=== PATIENT | female | born 1930 | race Caucasian/White ===

== ENCOUNTER 2016-12-13 16:24 | Inpatient (IN) | payer MEDICARE, MEDICAID ==
[2016-12-13 17:00] LABS: % BASOPHILS 0.3 % (0.0-2.0); % EOSINOPHILS 2.2 % (0.0-5.0); % LYMPHOCYTES 28.3 % (20.0-50.0); % MONOCYTES 8.1 % (2.0-10.0); % NEUTROPHILS 61.1 % (40.0-80.0); HEMATOCRIT 42.1 % (35.0-45.0); HEMOGLOBIN 13.7 gm/dL (11.7-16.1); MEAN CELL VOLUME 91.6 fl (81-100); MEAN CORPUSCULAR HEMOGLOBIN 29.8 pg (27.0-31.0); MEAN CORPUSCULAR HGB CONC 32.5 pg (28.0-36.0); MEAN PLATELET VOLUME 8.7 fl; PLATELET COUNT 222 Th/cmm (150-400); RED CELL DISTRIBUTION WIDTH 12.6 % (11.5-20.0); WHITE BLOOD COUNT 6.4 Th/cmm (4.8-10.8)
[2016-12-13 17:18] LABS: CHOLESTEROL 243 mg/dL (<200); TRIGLYCERIDES 316 mg/dL (<150)
[2016-12-13 17:20] LABS: ALB/GLOB RATIO 1.4 (1.0-1.8); ALKALINE PHOSPHATASE 83 U/L (34-104); BILIRUBIN,TOTAL 0.3 mg/dL (0.3-1.0); BUN - UREA NITROGEN 29 mg/dL (7-25); BUN/CREATININE RATIO 41.4; CALCIUM SERUM 9.2 mg/dL (8.6-10.3); CARBON DIOXIDE 27.9 mEq/L (21.0-31.0); CHLORIDE 102 mEq/L (98-107); CREATININE - SERUM 0.7 mg/dL (0.6-1.2); GLUCOSE 159 mg/dL (70-105); POTASSIUM SERUM 3.9 mEq/L (3.5-5.1); SGOT 15 U/L (13-39); SGPT/ALT 16 U/L (7-52); SODIUM SERUM 135 mEq/L (136-145)
[2016-12-13 17:37] LABS: INR 0.9 (0.5-1.4); PROTHROMBIN TIME (TEST) 9.4 SECONDS (9.5-11.5)
--- NOTE | 2016-12-13 17:46 | ED Physician Chart ---
Chief Complaint/HPI - Patient Information Date Seen:: 12/13/16 Time Seen:: 16:40 Chief Complaint:: RIGHT HAND INFECTION History of Present Illness:: THIS IS AN 86 YR OLD FEMALE SENT TO ER FOR AN EVALUATION OF A LESION ON THE RIGHT HAND AND SHE HAS A SIGNIFICANT PSYCH HISTORY. SHE IS UNABLE TO STATE HOW LONG THE HAND LESION HAS BEEN THERE. SHE IS UNABLE TO THINK WELL AND THE HISTORY AND REVIEW OF SYSTEMS ARE NOT RELIABLE. Allergies:: Allergies Allergy/AdvReac Type Severity Reaction Status Date / Time No Known Allergies Allergy Verified 12/13/16 16:35 Vitals:: Vital Signs - 8 hr 12/13/16 16:35 Temp 97.9 F HR 69 RR 19 BP 186/48 O2 Sat % 100 Historian:: Patient, Medical Records Review:: Nurse's Note Reviewed Review of Systems - Review of Systems General/Constitutional: No fever, No chills, No weight loss, No weakness, No diaphoresis, No edema, No loss of appetite Skin: No skin lesions, No rash, No bruising Head: No headache, No light-headedness Eyes: No loss of vision, No pain, No diplopia ENT: No earache, No nasal drainage, No sore throat, No tinnitus Neck: No neck pain, No swelling, No thyromegaly, No stiffness, No mass noted, Other (NOT ABLE TO GIVE) Cardio Vascular: No chest pain, No palpitations, No PND, No orthopnea, No edema Pulmonary: No SOB, No cough, No sputum, No wheezing GI: No nausea, No vomiting, No diarrhea, No pain, No melena, No hematochezia, No constipation, No hematemesis G/U: No dysuria, No frequency, No hematuria Musculoskeletal: No bone or joint pain, No back pain, No muscle pain Endocrine: No polyuria, No polydipsia Psychiatric: No prior psych history, No depression, No anxiety, No suicidal ideation Hematopoietic: No bruising, No lymphadenopathy Allergic/Immuno: No urticaria, No angioedema Neurological: No syncope, No focal symptoms, No weakness, No paresthesia, No headache, No seizure, No dizziness, No confusion, No vertigo Past Medical History - Past Medical History Obtainable: Yes Past Medical History: Dyslipidemia, Dementia Family History: None Social History: Non Smoker, No Alcohol, No Drug Use, Care Facility Surgical History: None Psychiatricy History: Depression, Schizophrenia Medication: Reviewed Family Medical History - Family Member Mother History Unknown: Yes Physical Exam - Physical Examination General/Constitutional: Awake, Well-developed, well-nourished, Alert, No distress, GCS 15, Non-toxic appearing, Ambulatory Head: Atraumatic Eyes: Lids, conjuctiva normal, PERRL, EOMI Skin: Nl inspection, No rash, No skin lesions, No ecchymosis, Well hydrated, No lymphadenopathy ENMT: External ears, nose nl, Nasal exam nl, Lips, teeth, gums nl Neck: Nontender, Full ROM w/o pain, No JVD, No nuchal rigidity, No bruit, No mass, No stridor Respiratory: Nl effort/Exclusion, Clear to Auscultation, No Wheeze/Rhonchi/Rales Cardio Vascular: RRR, No murmur, gallop, rubs, NL S1 S2 GI: No tenderness/rebounding/guarding, No organomegaly, No hernia, Normal BS's, Nondistended, No mass/bruits, No McBurney tenderness : No CVA tenderness Extremities: No tenderness or effusion, Full ROM, normal strength in all extremities, No edema, Normal digits & nails Other Extremities comments:: THERE IS A ROUND RAISE LESION ON THE DORSAL RIGHT HAND JUST BELOW THE WRIST AND THERE IS REDNESS AROUND THE BASE. THE SWELLING DOES NOT EXTENT BEYOUND THE HAND. Neuro/Psych: Alert/oriented, DTR's symmetric, Normal sensory exam, Normal motor strength, Judgement/insight normal, Mood normal, Normal gait, No focal deficits Misc: normal gait, Normal back, No paraspinal tenderness Labs/Radiology/EKG Results - Lab Results Results: Laboratory Tests 12/13/16 12/13/16 12/13/16 16:49 16:49 16:49 WBC 6.4 RBC 4.60 Hgb 13.7 Hct 42.1 MCV 91.6 MCH 29.8 MCHC Differential 32.5 RDW 12.6 Plt Count 222 MPV 8.7 Neutrophils % 61.1 Lymphocytes % 28.3 Monocytes % 8.1 Eosinophils % 2.2 Basophils % 0.3 Sodium 135 L Potassium 3.9 Chloride 102 Carbon Dioxide 27.9 Anion Gap 9.0 BUN 29 H Creatinine 0.7 Est GFR ( Amer) TNP Est GFR (Non-Af Amer) TNP BUN/Creatinine Ratio 41.4 Glucose 159 H Calcium 9.2 Total Bilirubin 0.3 AST 15 ALT 16 Alkaline Phosphatase 83 Troponin I Total Protein 6.8 Albumin 4.0 Globulin 2.8 Albumin/Globulin Ratio 1.4 Triglycerides 316 H Cholesterol 243 H LDL Cholesterol Direct 184 HDL Cholesterol 45 12/13/16 16:49 WBC RBC Hgb Hct MCV MCH MCHC Differential RDW Plt Count MPV Neutrophils % Lymphocytes % Monocytes % Eosinophils % Basophils % Sodium Potassium Chloride Carbon Dioxide Anion Gap BUN Creatinine Est GFR ( Amer) Est GFR (Non-Af Amer) BUN/Creatinine Ratio Glucose Calcium Total Bilirubin AST ALT Alkaline Phosphatase Troponin I 0.01 Total Protein Albumin Globulin Albumin/Globulin Ratio Triglycerides Cholesterol LDL Cholesterol Direct HDL Cholesterol - EKG Interpretations EKG Time:: 18:29 Rate & Rhythm: 52, SINUS [place]: LEFT AXIS Assessment - Assessment General Assessment: TUMOR RIGHT HAND VS INFECTION OF THE RIGHT HAND HYPERTENSION UNCONTROLLED PSYCHOSIS BRADYCARDIA ED Septic Shock - . Is Septic Shock (SBP<90, OR Lactate>4 mmol\L) present?: No - <6hrs of presentation: Vital Signs: Vital Signs - 8 hr 12/13/16 16:35 Temp 97.9 F HR 69 RR 19 BP 186/48 O2 Sat % 100 Reassessment (Disposition) - Diagnosis Diagnosis:: HYPERTENSION UNCONTROLLED RIGHT HAND LESION PSYCHOSIS BRADYCARDIA - Patient Disposition Discharge/Transfer:: Acute Care w/in this hosp Admitting Medical Physician:: Eddi Kohli ED Discharge Plan - Patient Disposition Admit/Discharge/Transfer: Acute Care w/in this hosp Condition at Disposition: Guarded
[2016-12-13] MEDS ORDERED: Maalox 30 mL Cup PO PRN (18:41)
[2016-12-13] MEDS ORDERED: Hydrocodone/APAP 5mg/325mg Tab PO PRN (18:41)
[2016-12-13] MEDS: D5-0.45NS 1,000 ML IV SCH (20:20)
[2016-12-13] MEDS: Levofloxacin 500mg/100mL 500 MG/100 ML BAG IV SCH (21:30)
[2016-12-13] MEDS: Atorvastatin Calcium 10 MG TAB PO SCH (21:32)
[2016-12-13 22:55] VITALS: BP 134/58
[2016-12-14] MEDS: Pantoprazole 40 mg EC Tab PO SCH (08:50)
--- NOTE | 2016-12-14 10:22 | Diagnostic Imaging Report ---
CHEST X-RAY: AP view INDICATION: Wheezing COMPARISON: None FINDINGS: Suboptimal lung volumes are seen. There is suggestion of small bilateral effusions. No focal consolidation identified. Cardiomegaly is noted with atherosclerosis. Degenerative changes of the spine are noted. IMPRESSION: Suggestion of small bilateral pleural effusions. Note, faint infiltrate of the left lung base cannot be excluded. When clinically feasible dedicated PA and lateral views of the chest would provide additional detail and assessment Cardiomegaly and atherosclerotic vascular disease.
--- NOTE | 2016-12-14 12:16 | Internal Medicine Prog Note ---
Internal Medicine Subjective - Subjective Service Date: 12/14/16 ([id number]) Internal Medicine Objective - Results Result Diagrams: 12/13/16 16:49 12/13/16 16:49 Recent Labs: Laboratory Last Values WBC 6.4 Th/cmm (4.8-10.8) 12/13/16 16:49 RBC 4.60 Mil/cmm (3.80-5.20) 12/13/16 16:49 Hgb 13.7 gm/dL (11.7-16.1) 12/13/16 16:49 Hct 42.1 % (35.0-45.0) 12/13/16 16:49 MCV 91.6 fl (81-100) 12/13/16 16:49 MCH 29.8 pg (27.0-31.0) 12/13/16 16:49 MCHC Differential 32.5 pg (28.0-36.0) 12/13/16 16:49 RDW 12.6 % (11.5-20.0) 12/13/16 16:49 Plt Count 222 Th/cmm (150-400) 12/13/16 16:49 MPV 8.7 fl 12/13/16 16:49 Neutrophils % 61.1 % (40.0-80.0) 12/13/16 16:49 Lymphocytes % 28.3 % (20.0-50.0) 12/13/16 16:49 Monocytes % 8.1 % (2.0-10.0) 12/13/16 16:49 Eosinophils % 2.2 % (0.0-5.0) 12/13/16 16:49 Basophils % 0.3 % (0.0-2.0) 12/13/16 16:49 PT 9.4 SECONDS (9.5-11.5) L 12/13/16 16:49 INR 0.90 (0.5-1.4) 12/13/16 16:49 PTT (Actin FS) 22.0 SECONDS (26.0-38.0) L 12/13/16 16:49 Sodium 135 mEq/L (136-145) L 12/13/16 16:49 Potassium 3.9 mEq/L (3.5-5.1) 12/13/16 16:49 Chloride 102 mEq/L (98-107) 12/13/16 16:49 Carbon Dioxide 27.9 mEq/L (21.0-31.0) 12/13/16 16:49 Anion Gap 9.0 (7.0-16.0) 12/13/16 16:49 BUN 29 mg/dL (7-25) H 12/13/16 16:49 Creatinine 0.7 mg/dL (0.6-1.2) 12/13/16 16:49 Est GFR ( Amer) TNP 12/13/16 16:49 Est GFR (Non-Af Amer) TNP 12/13/16 16:49 BUN/Creatinine Ratio 41.4 12/13/16 16:49 Glucose 159 mg/dL (70-105) H 12/13/16 16:49 Calcium 9.2 mg/dL (8.6-10.3) 12/13/16 16:49 Total Bilirubin 0.3 mg/dL (0.3-1.0) 12/13/16 16:49 AST 15 U/L (13-39) 12/13/16 16:49 ALT 16 U/L (7-52) 12/13/16 16:49 Alkaline Phosphatase 83 U/L (34-104) 12/13/16 16:49 Troponin I 0.01 ng/mL (0.01-0.05) 12/13/16 16:49 Total Protein 6.8 gm/dL (6.0-8.3) 12/13/16 16:49 Albumin 4.0 gm/dL (3.7-5.3) 12/13/16 16:49 Globulin 2.8 gm/dL 12/13/16 16:49 Albumin/Globulin Ratio 1.4 (1.0-1.8) 12/13/16 16:49 Triglycerides 316 mg/dL (<150) H 12/13/16 16:49 Cholesterol 243 mg/dL (<200) H 12/13/16 16:49 LDL Cholesterol Direct 184 mg/dL (75-193) 12/13/16 16:49 HDL Cholesterol 45 mg/dL (23-92) 12/13/16 16:49 TSH 0.69 uIU/ml (0.34-5.60) 12/13/16 16:49 Valproic Acid < 10.0 ug/mL (50.0-100.0) L 12/13/16 16:49 RPR NONREACTIVE (NONREACTIVE) 12/13/16 16:49 - Physical Exam Vitals and I&O: Vital Signs Temp 97.8 F 12/14/16 11:34 Pulse 57 12/14/16 11:34 Resp 19 12/14/16 11:34 BP 179/68 12/14/16 11:34 Pulse Ox 97 12/14/16 11:34 Intake & Output 12/13/16 12/14/16 12/14/16 18:59 06:59 18:59 Intake Total 300 Balance 300 Weight (lbs) 157 lb Intake: Oral 300 Other: # Voids 3 # Bowel Movements 0 Active Medications: Current Medications Acetaminophen (Tylenol) 650 mg PO Q4H PRN PRN Reason: Pain Or Fever above 101 Stop: 02/11/17 18:40 Acetaminophen/Hydrocodone Bitart ([place] 5mg/325mg) 1 tab PO Q4H PRN PRN Reason: Pain (Severe) Stop: 02/11/17 18:40 Al Hydrox/Mg Hydrox/Simethicone (Maalox) 30 ml PO Q6H PRN PRN Reason: Dyspepsia Stop: 02/11/17 18:40 Amlodipine Besylate (Norvasc) 5 mg PO DAILY [facility] Stop: 02/11/17 18:44 Last Admin: 12/14/16 08:50 Dose: 5 mg Atorvastatin Calcium (Lipitor) 20 mg PO HS [facility] Stop: 02/11/17 20:59 Last Admin: 12/13/16 21:32 Dose: 20 mg Buspirone HCl (Buspar) 7.5 mg PO BID [facility] Stop: 02/12/17 08:59 Last Admin: 12/14/16 08:49 Dose: 7.5 mg Clonidine HCl (Catapres) 0.1 mg PO Q6H PRN PRN Reason: SBP GREATER THAN 160 Stop: 02/11/17 18:40 Divalproex Sodium (Depakote Dr) 125 mg PO Q12HR [facility] PRN Reason: Protocol Stop: 02/11/17 20:59 Last Admin: 12/14/16 08:48 Dose: 125 mg Duloxetine HCl (Cymbalta) 30 mg PO DAILY [facility] PRN Reason: Protocol Stop: 02/12/17 08:59 Last Admin: 12/14/16 08:48 Dose: 30 mg Heparin Sodium (Porcine) (Heparin) 5,000 units SUBQ Q12HR [facility] Stop: 02/11/17 20:59 Last Admin: 12/14/16 08:48 Dose: 5,000 units Dextrose/Sodium Chloride (D5-0.45ns) 1,000 mls @ 80 mls/hr IV .[id number] [facility] Stop: 02/11/17 18:44 Last Admin: 12/13/16 20:20 Dose: 80 mls/hr Levofloxacin (Levaquin Pb) 500 mg in 100 mls @ 100 mls/hr IV Q24HR [facility] Stop: 02/11/17 20:59 Last Admin: 12/13/16 21:30 Dose: 100 mls/hr Lisinopril (Zestril) 20 mg PO BID [facility] Stop: 02/12/17 08:59 Last Admin: 12/14/16 08:50 Dose: 20 mg Loperamide HCl (Imodium) 2 mg PO Q6H PRN PRN Reason: Diarrhea Stop: 02/11/17 18:34 Memantine (Namenda) 10 mg PO BID [facility] Stop: 02/12/17 08:59 Last Admin: 12/14/16 08:48 Dose: 10 mg Miscellaneous (Cholecalciferol (Vitamin D3) [Vitamin D3]) 1 tab PO DAILY [facility] Stop: 02/12/17 08:59 Nitroglycerin (Nitrostat) 0.4 mg SL Q5MIN PRN PRN Reason: Chest Pain Stop: 02/11/17 18:34 Ondansetron HCl (Zofran) 4 mg IV Q8H PRN PRN Reason: Nausea / Vomiting Stop: 02/11/17 18:40 Pantoprazole Sodium (Protonix) 40 mg PO DAILY [facility] Stop: 02/12/17 08:59 Last Admin: 12/14/16 08:50 Dose: 40 mg Sertraline HCl (Zoloft) 75 mg PO DAILY [facility] PRN Reason: Protocol Stop: 02/12/17 08:59 Last Admin: 12/14/16 08:48 Dose: 75 mg Internal Medicine Assmt/Plan - Assessment Assessment: RIGHT hand infection possible mass out of control htn dm-2 chf dementia gerd
--- NOTE | 2016-12-14 12:54 | History & Physical ---
ADMIT DATE: 12/14/2016 CHIEF COMPLAINT: Right hand infection. HISTORY OF PRESENT ILLNESS: This is an 86-year-old female, who is a resident of [facility] who is brought here to [facility] for right hand infection. Upon examination, the patient's right hand is noted with the lesion that is draining with pus. The patient did not have any fevers at the senior care according to the patient. She does not remember how long the lesion has been there. For this reason, the patient is admitted to the med/surg unit. PAST MEDICAL HISTORY: CHF, muscle weakness, encephalopathy, type 2 diabetes, GERD, bipolar disorder, dementia and hypertension. PAST SURGICAL HISTORY: Unknown. MEDICATIONS: Please see medication reconciliation sheet. SOCIAL HISTORY: The patient is a senior care resident, requiring 24-hour nursing care. REVIEW OF SYSTEMS: GENERAL: Denies any fevers, any chills. CARDIOVASCULAR: Denies any chest pain. SKIN: The patient has a right hand lesion. PULMONARY: Denies any shortness of breath. GASTROINTESTINAL: Denies any nausea, vomiting, abdominal pain. GENITOURINARY: Denies any dysuria. All other systems are reviewed by me and are negative. PHYSICAL EXAMINATION: GENERAL: The patient is a well-developed, well-nourished, in no acute distress. VITAL SIGNS: Temperature 97.8, heart rate 67, blood pressure 179/60, respirations 19, O2 97%. HEENT: Head; normocephalic, atraumatic. NECK: Supple. No mass. LUNGS: Clear bilaterally. HEART: Regular rhythm. ABDOMEN: Soft, nontender. LABORATORY DATA: WBC 6.4, H and H of 13.7 and 42.1, platelet of 222. Sodium 135, potassium 3.9, chloride 102, BUN 29, creatinine 0.7. DIAGNOSTICS: The patient had a chest x-ray done and the impression is, suggestive small bilateral pleural effusions, no faint infiltrate at the left lung base cannot be excluded. ASSESSMENT: Infected right hand, possible mass, out of control hypertension, congestive heart failure, type 2 diabetes, dementia, gastroesophageal reflux disease. PLAN: The patient to be admitted to the med/surg unit. Will get a wound culture of her right. Keep the patient on IV antibiotics of Levaquin, IV fluids for hydration. Monitor patient's labs. Continue to monitor this patient. [facility]# [id number]
[2016-12-14] MEDS: Atorvastatin Calcium 10 MG TAB PO SCH (20:14)
[2016-12-14] MEDS: Levofloxacin 500mg/100mL 500 MG/100 ML BAG IV SCH (20:24)
[2016-12-15] MEDS: D5-0.45NS 1,000 ML IV SCH ×2 (02:23→16:35)
[2016-12-15 06:07] LABS: % BASOPHILS 0.4 % (0.0-2.0); % EOSINOPHILS 2.3 % (0.0-5.0); % LYMPHOCYTES 34.6 % (20.0-50.0); % MONOCYTES 8.7 % (2.0-10.0); HEMATOCRIT 40.4 % (35.0-45.0); HEMOGLOBIN 13.6 gm/dL (11.7-16.1); MEAN CELL VOLUME 90.7 fl (81-100); MEAN CORPUSCULAR HEMOGLOBIN 30.6 pg (27.0-31.0); MEAN CORPUSCULAR HGB CONC 33.7 pg (28.0-36.0); MEAN PLATELET VOLUME 8.7 fl; NEUTROPHILE ABSOLUTE 3.6 Th/cmm (1.8-8.0); PLATELET COUNT 203 Th/cmm (150-400); RED BLOOD COUNT 4.46 Mil/cmm (3.80-5.20); RED CELL DISTRIBUTION WIDTH 12.2 % (11.5-20.0); WHITE BLOOD COUNT 6.8 Th/cmm (4.8-10.8)
[2016-12-15 06:26] LABS: ANION GAP 7.3 (7.0-16.0); BUN - UREA NITROGEN 21 mg/dL (7-25); BUN/CREATININE RATIO 26.3; CALCIUM SERUM 9.3 mg/dL (8.6-10.3); CARBON DIOXIDE 27.8 mEq/L (21.0-31.0); CHLORIDE 107 mEq/L (98-107); CREATININE - SERUM 0.8 mg/dL (0.6-1.2); GLUCOSE 125 mg/dL (70-105); POTASSIUM SERUM 4.1 mEq/L (3.5-5.1); SODIUM SERUM 138 mEq/L (136-145)
[2016-12-15] MEDS: Pantoprazole 40 mg EC Tab PO SCH (09:47)
--- NOTE | 2016-12-15 11:19 | History & Physical ---
ADMIT DATE: 12/15/2016 REFERRING PHYSICIAN: Dr. Kohli. REASON FOR CONSULTATION: Infected right hand. Thank you for referring this patient to me. HISTORY OF PRESENT ILLNESS: This is an 86-year-old female who was brought in from detention because of infection involving the right hand. Duration of this is not well documented. The patient is unable to give any information. PAST MEDICAL HISTORY: Includes CHF, encephalopathy, type 2 diabetes, bipolar disorder, dementia, hypertension. LABORATORY STUDIES: Showed the CBC to be normal. The blood sugar was 159. Liver function tests were normal. Triglycerides 316 and cholesterol of 243. PHYSICAL EXAMINATION: There is a wound in the right hand dorsum between the thumb and the second finger with scalp information. There is minimal drainage. RECOMMENDATIONS: Incision and drainage and debridement of the wound. JOB# [id number]
--- NOTE | 2016-12-15 13:50 | Internal Medicine Prog Note ---
Internal Medicine Subjective - Subjective Service Date: 12/15/16 Patient seen and examined:: with staff Patient is:: awake Per staff patient has:: no adverse event, tolerating meds Internal Medicine Objective - Results Result Diagrams: 12/15/16 05:45 12/15/16 05:45 Recent Labs: Laboratory Last Values WBC 6.8 Th/cmm (4.8-10.8) 12/15/16 05:45 RBC 4.46 Mil/cmm (3.80-5.20) 12/15/16 05:45 Hgb 13.6 gm/dL (11.7-16.1) 12/15/16 05:45 Hct 40.4 % (35.0-45.0) 12/15/16 05:45 MCV 90.7 fl (81-100) 12/15/16 05:45 MCH 30.6 pg (27.0-31.0) 12/15/16 05:45 MCHC Differential 33.7 pg (28.0-36.0) 12/15/16 05:45 RDW 12.2 % (11.5-20.0) 12/15/16 05:45 Plt Count 203 Th/cmm (150-400) 12/15/16 05:45 MPV 8.7 fl 12/15/16 05:45 Neutrophils % 54.0 % (40.0-80.0) 12/15/16 05:45 Lymphocytes % 34.6 % (20.0-50.0) 12/15/16 05:45 Monocytes % 8.7 % (2.0-10.0) 12/15/16 05:45 Eosinophils % 2.3 % (0.0-5.0) 12/15/16 05:45 Basophils % 0.4 % (0.0-2.0) 12/15/16 05:45 PT 9.4 SECONDS (9.5-11.5) L 12/13/16 16:49 INR 0.90 (0.5-1.4) 12/13/16 16:49 PTT (Actin FS) 22.0 SECONDS (26.0-38.0) L 12/13/16 16:49 Sodium 138 mEq/L (136-145) 12/15/16 05:45 Potassium 4.1 mEq/L (3.5-5.1) 12/15/16 05:45 Chloride 107 mEq/L (98-107) 12/15/16 05:45 Carbon Dioxide 27.8 mEq/L (21.0-31.0) 12/15/16 05:45 Anion Gap 7.3 (7.0-16.0) 12/15/16 05:45 BUN 21 mg/dL (7-25) 12/15/16 05:45 Creatinine 0.8 mg/dL (0.6-1.2) 12/15/16 05:45 Est GFR ( Amer) TNP 12/15/16 05:45 Est GFR (Non-Af Amer) TNP 12/15/16 05:45 BUN/Creatinine Ratio 26.3 12/15/16 05:45 Glucose 125 mg/dL (70-105) H 12/15/16 05:45 Calcium 9.3 mg/dL (8.6-10.3) 12/15/16 05:45 Total Bilirubin 0.3 mg/dL (0.3-1.0) 12/13/16 16:49 AST 15 U/L (13-39) 12/13/16 16:49 ALT 16 U/L (7-52) 12/13/16 16:49 Alkaline Phosphatase 83 U/L (34-104) 12/13/16 16:49 Troponin I 0.01 ng/mL (0.01-0.05) 12/13/16 16:49 Total Protein 6.8 gm/dL (6.0-8.3) 12/13/16 16:49 Albumin 4.0 gm/dL (3.7-5.3) 12/13/16 16:49 Globulin 2.8 gm/dL 12/13/16 16:49 Albumin/Globulin Ratio 1.4 (1.0-1.8) 12/13/16 16:49 Triglycerides 316 mg/dL (<150) H 12/13/16 16:49 Cholesterol 243 mg/dL (<200) H 12/13/16 16:49 LDL Cholesterol Direct 184 mg/dL (75-193) 12/13/16 16:49 HDL Cholesterol 45 mg/dL (23-92) 12/13/16 16:49 TSH 0.69 uIU/ml (0.34-5.60) 12/13/16 16:49 Valproic Acid < 10.0 ug/mL (50.0-100.0) L 12/13/16 16:49 RPR NONREACTIVE (NONREACTIVE) 12/13/16 16:49 - Physical Exam Vitals and I&O: Vital Signs Temp 96.6 F 12/15/16 12:00 Pulse 61 12/15/16 12:06 Resp 18 12/15/16 12:00 BP 163/70 12/15/16 12:00 Pulse Ox 95 12/15/16 12:00 Intake & Output 12/14/16 12/15/16 12/15/16 18:59 06:59 18:59 Intake Total 1500 100 Balance 1500 100 Weight (lbs) 157 lb Intake: Intake, IV Amount 1000 100 D5-0.45NS 1,000 ml @ 80 1000 mls/hr IV .[id number] [facility] Rx #:[id number] Levofloxacin 500mg/100mL 100 500 mg In 100 ml @ 100 mls/hr IV Q24HR [facility] Rx#: [id number] Oral 500 Other: # Voids 2 Active Medications: Current Medications Acetaminophen (Tylenol) 650 mg PO Q4H PRN PRN Reason: Pain Or Fever above 101 Stop: 02/11/17 18:40 Acetaminophen/Hydrocodone Bitart ([place] 5mg/325mg) 1 tab PO Q4H PRN PRN Reason: Pain (Severe) Stop: 02/11/17 18:40 Al Hydrox/Mg Hydrox/Simethicone (Maalox) 30 ml PO Q6H PRN PRN Reason: Dyspepsia Stop: 02/11/17 18:40 Amlodipine Besylate (Norvasc) 5 mg PO DAILY [facility] Stop: 02/11/17 18:44 Last Admin: 12/15/16 09:43 Dose: 5 mg Atorvastatin Calcium (Lipitor) 20 mg PO HS [facility] Stop: 02/11/17 20:59 Last Admin: 12/14/16 20:14 Dose: 20 mg Buspirone HCl (Buspar) 7.5 mg PO BID [facility] Stop: 02/12/17 08:59 Last Admin: 12/15/16 09:47 Dose: 7.5 mg Cholecalciferol (Vitamin D3) 5,000 iu PO DAILY [facility] Stop: 02/12/17 12:59 Last Admin: 12/15/16 09:43 Dose: 5,000 iu Clonidine HCl (Catapres) 0.1 mg PO Q6H PRN PRN Reason: SBP GREATER THAN 160 Stop: 02/11/17 18:40 Last Admin: 12/15/16 12:06 Dose: 0.1 mg Divalproex Sodium (Depakote Dr) 125 mg PO Q12HR [facility] PRN Reason: Protocol Stop: 02/11/17 20:59 Last Admin: 12/15/16 09:47 Dose: 125 mg Duloxetine HCl (Cymbalta) 30 mg PO DAILY [facility] PRN Reason: Protocol Stop: 02/12/17 08:59 Last Admin: 12/15/16 09:47 Dose: 30 mg Heparin Sodium (Porcine) (Heparin) 5,000 units SUBQ Q12HR [facility] Stop: 02/11/17 20:59 Last Admin: 12/15/16 09:48 Dose: 5,000 units Dextrose/Sodium Chloride (D5-0.45ns) 1,000 mls @ 80 mls/hr IV .[id number] [facility] Stop: 02/11/17 18:44 Last Admin: 12/15/16 02:23 Dose: 80 mls/hr Levofloxacin (Levaquin Pb) 500 mg in 100 mls @ 100 mls/hr IV Q24HR [facility] Stop: 02/11/17 20:59 Last Admin: 12/14/16 20:24 Dose: 100 mls/hr Lisinopril (Zestril) 20 mg PO BID [facility] Stop: 02/12/17 08:59 Last Admin: 12/15/16 09:46 Dose: 20 mg Loperamide HCl (Imodium) 2 mg PO Q6H PRN PRN Reason: Diarrhea Stop: 02/11/17 18:34 Memantine (Namenda) 10 mg PO BID [facility] Stop: 02/12/17 08:59 Last Admin: 12/15/16 09:47 Dose: 10 mg Nitroglycerin (Nitrostat) 0.4 mg SL Q5MIN PRN PRN Reason: Chest Pain Stop: 02/11/17 18:34 Ondansetron HCl (Zofran) 4 mg IV Q8H PRN PRN Reason: Nausea / Vomiting Stop: 02/11/17 18:40 Pantoprazole Sodium (Protonix) 40 mg PO DAILY [facility] Stop: 02/12/17 08:59 Last Admin: 12/15/16 09:47 Dose: 40 mg Sertraline HCl (Zoloft) 75 mg PO DAILY [facility] PRN Reason: Protocol Stop: 02/12/17 08:59 Last Admin: 12/15/16 09:46 Dose: 75 mg General: alert HEENT: NC/AT, PERRLA Neck: Supple, No JVD, No thyromegaly Lungs: CTAB Cardiovascular: RRR, Normal S1, Normal S2 Abdomen: soft, non-tender, non-distended Extremities: other (RIGHT HAND INFECTION) Neurological: no change Internal Medicine Assmt/Plan - Assessment Assessment: RIGHT hand infection possible mass out of control htn dm-2 chf dementia gerd - Plan Plan: I+D TO BE DONE BY DR. ANDERSON CONTINUE EMPIRIC IVABX AWAITING FOR CULTURE OF WOUND AM LABS CONTINUE CURRENT PLAN OF CARE
[2016-12-15] MEDS ORDERED: VTE Chemical Prophylaxis Screen/Admission MC PRN (17:27)
[2016-12-15] MEDS: Atorvastatin Calcium 10 MG TAB PO SCH (21:59)
[2016-12-15] MEDS: Levofloxacin 500mg/100mL 500 MG/100 ML BAG IV SCH (22:00)
[2016-12-16 07:21] LABS: % BASOPHILS 0.8 % (0.0-2.0); % EOSINOPHILS 2.3 % (0.0-5.0); % LYMPHOCYTES 40.7 % (20.0-50.0); % MONOCYTES 9.4 % (2.0-10.0); % NEUTROPHILS 46.8 % (40.0-80.0); HEMATOCRIT 38.7 % (35.0-45.0); HEMOGLOBIN 12.9 gm/dL (11.7-16.1); MEAN CELL VOLUME 91.3 fl (81-100); MEAN CORPUSCULAR HEMOGLOBIN 30.5 pg (27.0-31.0); MEAN CORPUSCULAR HGB CONC 33.4 pg (28.0-36.0); MEAN PLATELET VOLUME 8.9 fl; PLATELET COUNT 195 Th/cmm (150-400); RED BLOOD COUNT 4.24 Mil/cmm (3.80-5.20); RED CELL DISTRIBUTION WIDTH 12.3 % (11.5-20.0); WHITE BLOOD COUNT 6.6 Th/cmm (4.8-10.8)
[2016-12-16 07:42] LABS: ANION GAP 9.6 (7.0-16.0); BUN - UREA NITROGEN 20 mg/dL (7-25); BUN/CREATININE RATIO 28.6; CALCIUM SERUM 8.8 mg/dL (8.6-10.3); CARBON DIOXIDE 26.5 mEq/L (21.0-31.0); CHLORIDE 107 mEq/L (98-107); CREATININE - SERUM 0.7 mg/dL (0.6-1.2); GLUCOSE 120 mg/dL (70-105); POTASSIUM SERUM 4.1 mEq/L (3.5-5.1); SODIUM SERUM 139 mEq/L (136-145)
[2016-12-16] MEDS: Pantoprazole 40 mg EC Tab PO SCH (09:09)
[2016-12-16] MEDS: D5-0.45NS 1,000 ML IV SCH (12:39)
--- NOTE | 2016-12-16 13:11 | Internal Medicine Prog Note ---
Internal Medicine Subjective - Subjective Service Date: 12/16/16 Patient is:: awake Per staff patient has:: no adverse event, tolerating meds Internal Medicine Objective - Results Result Diagrams: 12/16/16 06:25 12/16/16 06:25 Recent Labs: Laboratory Last Values WBC 6.6 Th/cmm (4.8-10.8) 12/16/16 06:25 RBC 4.24 Mil/cmm (3.80-5.20) 12/16/16 06:25 Hgb 12.9 gm/dL (11.7-16.1) 12/16/16 06:25 Hct 38.7 % (35.0-45.0) 12/16/16 06:25 MCV 91.3 fl (81-100) 12/16/16 06:25 MCH 30.5 pg (27.0-31.0) 12/16/16 06:25 MCHC Differential 33.4 pg (28.0-36.0) 12/16/16 06:25 RDW 12.3 % (11.5-20.0) 12/16/16 06:25 Plt Count 195 Th/cmm (150-400) 12/16/16 06:25 MPV 8.9 fl 12/16/16 06:25 Neutrophils % 46.8 % (40.0-80.0) 12/16/16 06:25 Lymphocytes % 40.7 % (20.0-50.0) 12/16/16 06:25 Monocytes % 9.4 % (2.0-10.0) 12/16/16 06:25 Eosinophils % 2.3 % (0.0-5.0) 12/16/16 06:25 Basophils % 0.8 % (0.0-2.0) 12/16/16 06:25 PT 9.4 SECONDS (9.5-11.5) L 12/13/16 16:49 INR 0.90 (0.5-1.4) 12/13/16 16:49 PTT (Actin FS) 22.0 SECONDS (26.0-38.0) L 12/13/16 16:49 Sodium 139 mEq/L (136-145) 12/16/16 06:25 Potassium 4.1 mEq/L (3.5-5.1) 12/16/16 06:25 Chloride 107 mEq/L (98-107) 12/16/16 06:25 Carbon Dioxide 26.5 mEq/L (21.0-31.0) 12/16/16 06:25 Anion Gap 9.6 (7.0-16.0) 12/16/16 06:25 BUN 20 mg/dL (7-25) 12/16/16 06:25 Creatinine 0.7 mg/dL (0.6-1.2) 12/16/16 06:25 Est GFR ( Amer) TNP 12/16/16 06:25 Est GFR (Non-Af Amer) TNP 12/16/16 06:25 BUN/Creatinine Ratio 28.6 12/16/16 06:25 Glucose 120 mg/dL (70-105) H 12/16/16 06:25 Calcium 8.8 mg/dL (8.6-10.3) 12/16/16 06:25 Total Bilirubin 0.3 mg/dL (0.3-1.0) 12/13/16 16:49 AST 15 U/L (13-39) 12/13/16 16:49 ALT 16 U/L (7-52) 12/13/16 16:49 Alkaline Phosphatase 83 U/L (34-104) 12/13/16 16:49 Troponin I 0.01 ng/mL (0.01-0.05) 12/13/16 16:49 Total Protein 6.8 gm/dL (6.0-8.3) 12/13/16 16:49 Albumin 4.0 gm/dL (3.7-5.3) 12/13/16 16:49 Globulin 2.8 gm/dL 12/13/16 16:49 Albumin/Globulin Ratio 1.4 (1.0-1.8) 12/13/16 16:49 Triglycerides 316 mg/dL (<150) H 12/13/16 16:49 Cholesterol 243 mg/dL (<200) H 12/13/16 16:49 LDL Cholesterol Direct 184 mg/dL (75-193) 12/13/16 16:49 HDL Cholesterol 45 mg/dL (23-92) 12/13/16 16:49 TSH 0.69 uIU/ml (0.34-5.60) 12/13/16 16:49 Valproic Acid < 10.0 ug/mL (50.0-100.0) L 12/13/16 16:49 RPR NONREACTIVE (NONREACTIVE) 12/13/16 16:49 - Physical Exam Vitals and I&O: Vital Signs Temp 96.7 F 12/16/16 11:38 Pulse 56 12/16/16 11:38 Resp 18 12/16/16 11:38 BP 124/55 12/16/16 11:38 Pulse Ox 96 12/16/16 11:38 Intake & Output 12/15/16 12/16/16 12/16/16 18:59 06:59 18:59 Intake Total 2550 50 Balance 2550 50 Weight (lbs) 157 lb 157 lb 158 lb 9.6 oz Intake: Intake, IV Amount 1000 D5-0.45NS 1,000 ml @ 80 1000 mls/hr IV .[id number] [facility] Rx #:[id number] Oral 1550 50 Other: # Voids 4 2 # Bowel Movements 2 1 Stool Characteristics Soft Soft Soft Formed Formed Formed Brown Brown Brown Active Medications: Current Medications Acetaminophen (Tylenol) 650 mg PO Q4H PRN PRN Reason: Pain Or Fever above 101 Stop: 02/11/17 18:40 Acetaminophen/Hydrocodone Bitart ([place] 5mg/325mg) 1 tab PO Q4H PRN PRN Reason: Pain (Severe) Stop: 02/11/17 18:40 Al Hydrox/Mg Hydrox/Simethicone (Maalox) 30 ml PO Q6H PRN PRN Reason: Dyspepsia Stop: 02/11/17 18:40 Amlodipine Besylate (Norvasc) 5 mg PO DAILY [facility] Stop: 02/11/17 18:44 Last Admin: 12/16/16 09:09 Dose: 5 mg Atorvastatin Calcium (Lipitor) 20 mg PO HS [facility] Stop: 02/11/17 20:59 Last Admin: 12/15/16 21:59 Dose: 20 mg Buspirone HCl (Buspar) 7.5 mg PO BID [facility] Stop: 02/12/17 08:59 Last Admin: 12/16/16 09:08 Dose: 7.5 mg Cholecalciferol (Vitamin D3) 5,000 iu PO DAILY [facility] Stop: 02/12/17 12:59 Last Admin: 12/16/16 09:07 Dose: 5,000 iu Clonidine HCl (Catapres) 0.1 mg PO Q6H PRN PRN Reason: SBP GREATER THAN 160 Stop: 02/11/17 18:40 Last Admin: 12/15/16 12:06 Dose: 0.1 mg Divalproex Sodium (Depakote Dr) 125 mg PO Q12HR [facility] PRN Reason: Protocol Stop: 02/11/17 20:59 Last Admin: 12/16/16 09:08 Dose: 125 mg Duloxetine HCl (Cymbalta) 30 mg PO DAILY [facility] PRN Reason: Protocol Stop: 02/12/17 08:59 Last Admin: 12/16/16 09:09 Dose: 30 mg Heparin Sodium (Porcine) (Heparin) 5,000 units SUBQ Q12HR [facility] Stop: 02/11/17 20:59 Last Admin: 12/16/16 09:10 Dose: 5,000 units Dextrose/Sodium Chloride (D5-0.45ns) 1,000 mls @ 80 mls/hr IV .[id number] [facility] Stop: 02/11/17 18:44 Last Admin: 12/15/16 16:35 Dose: 80 mls/hr Levofloxacin (Levaquin Pb) 500 mg in 100 mls @ 100 mls/hr IV Q24HR [facility] Stop: 02/11/17 20:59 Last Admin: 12/15/16 22:00 Dose: 100 mls/hr Lisinopril (Zestril) 20 mg PO BID [facility] Stop: 02/12/17 08:59 Last Admin: 12/16/16 09:10 Dose: 20 mg Loperamide HCl (Imodium) 2 mg PO Q6H PRN PRN Reason: Diarrhea Stop: 02/11/17 18:34 Memantine (Namenda) 10 mg PO BID [facility] Stop: 02/12/17 08:59 Last Admin: 12/16/16 09:09 Dose: 10 mg Miscellaneous (Vte Chemical Prophylaxis Screen/ Admission) 1 ea [facility] PRN PRN PRN Reason: PROTOCOL Stop: 02/13/17 17:26 Nitroglycerin (Nitrostat) 0.4 mg SL Q5MIN PRN PRN Reason: Chest Pain Stop: 02/11/17 18:34 Ondansetron HCl (Zofran) 4 mg IV Q8H PRN PRN Reason: Nausea / Vomiting Stop: 02/11/17 18:40 Pantoprazole Sodium (Protonix) 40 mg PO DAILY [facility] Stop: 02/12/17 08:59 Last Admin: 12/16/16 09:09 Dose: 40 mg Sertraline HCl (Zoloft) 75 mg PO DAILY [facility] PRN Reason: Protocol Stop: 02/12/17 08:59 Last Admin: 12/16/16 09:09 Dose: 75 mg General: alert HEENT: NC/AT, PERRLA Neck: Supple, No JVD, No thyromegaly Lungs: CTAB Cardiovascular: RRR, Normal S1, Normal S2 Abdomen: soft, non-tender, non-distended Extremities: other (RIGHT HAND INFECTION) Neurological: no change Internal Medicine Assmt/Plan - Assessment Assessment: RIGHT hand infection possible mass out of control htn dm-2 chf dementia gerd - Plan Plan: AWAIT FOR CULTURE OF WOUND I+D TO BE DONE BY DR. ANDERSON CONTINUE EMPIRIC IVABX AM LABS CONTINUE CURRENT PLAN OF CARE
[2016-12-16] MEDS: Atorvastatin Calcium 10 MG TAB PO SCH (20:53)
[2016-12-16] MEDS: Levofloxacin 500mg/100mL 500 MG/100 ML BAG IV SCH (20:58)
[2016-12-17] MEDS: D5-0.45NS 1,000 ML IV SCH ×2 (04:04→19:46)
[2016-12-17 07:10] LABS: % BASOPHILS 0.4 % (0.0-2.0); % EOSINOPHILS 3.5 % (0.0-5.0); % LYMPHOCYTES 40.1 % (20.0-50.0); % MONOCYTES 8.8 % (2.0-10.0); % NEUTROPHILS 47.2 % (40.0-80.0); HEMATOCRIT 40.2 % (35.0-45.0); HEMOGLOBIN 13.4 gm/dL (11.7-16.1); MEAN CELL VOLUME 90.3 fl (81-100); MEAN CORPUSCULAR HGB CONC 33.2 pg (28.0-36.0); MEAN PLATELET VOLUME 8.9 fl; PLATELET COUNT 199 Th/cmm (150-400); RED BLOOD COUNT 4.46 Mil/cmm (3.80-5.20); RED CELL DISTRIBUTION WIDTH 12.1 % (11.5-20.0); WHITE BLOOD COUNT 6.4 Th/cmm (4.8-10.8)
[2016-12-17 07:16] LABS: INR 0.99 (0.5-1.4); PROTHROMBIN TIME (TEST) 10.3 SECONDS (9.5-11.5)
[2016-12-17 07:40] LABS: ANION GAP 6.2 (7.0-16.0); BUN - UREA NITROGEN 17 mg/dL (7-25); BUN/CREATININE RATIO 21.3; CARBON DIOXIDE 26.8 mEq/L (21.0-31.0); CHLORIDE 110 mEq/L (98-107); CREATININE - SERUM 0.8 mg/dL (0.6-1.2); GLUCOSE 112 mg/dL (70-105); SODIUM SERUM 139 mEq/L (136-145)
[2016-12-17] MEDS ORDERED: Meperidine 25 mg/mL 1mL Syr IVP PRN (09:04)
[2016-12-17] MEDS ORDERED: Lactated Ringer 1,000 ML IV SCH (09:15)
[2016-12-17] MEDS: Pantoprazole 40 mg EC Tab PO SCH (10:39)
--- NOTE | 2016-12-17 10:44 | Internal Medicine Prog Note ---
Internal Medicine Subjective - Subjective Service Date: 12/17/16 (wound culture negative) Patient seen and examined:: with staff Patient is:: awake Per staff patient has:: no adverse event, tolerating meds Internal Medicine Objective - Results Result Diagrams: 12/17/16 06:20 12/17/16 06:20 Recent Labs: Laboratory Last Values WBC 6.4 Th/cmm (4.8-10.8) 12/17/16 06:20 RBC 4.46 Mil/cmm (3.80-5.20) 12/17/16 06:20 Hgb 13.4 gm/dL (11.7-16.1) 12/17/16 06:20 Hct 40.2 % (35.0-45.0) 12/17/16 06:20 MCV 90.3 fl (81-100) 12/17/16 06:20 MCH 30.0 pg (27.0-31.0) 12/17/16 06:20 MCHC Differential 33.2 pg (28.0-36.0) 12/17/16 06:20 RDW 12.1 % (11.5-20.0) 12/17/16 06:20 Plt Count 199 Th/cmm (150-400) 12/17/16 06:20 MPV 8.9 fl 12/17/16 06:20 Neutrophils % 47.2 % (40.0-80.0) 12/17/16 06:20 Lymphocytes % 40.1 % (20.0-50.0) 12/17/16 06:20 Monocytes % 8.8 % (2.0-10.0) 12/17/16 06:20 Eosinophils % 3.5 % (0.0-5.0) 12/17/16 06:20 Basophils % 0.4 % (0.0-2.0) 12/17/16 06:20 PT 10.3 SECONDS (9.5-11.5) 12/17/16 06:20 INR 0.99 (0.5-1.4) 12/17/16 06:20 PTT (Actin FS) 28.1 SECONDS (26.0-38.0) 12/17/16 06:20 Sodium 139 mEq/L (136-145) 12/17/16 06:20 Potassium 4.0 mEq/L (3.5-5.1) 12/17/16 06:20 Chloride 110 mEq/L (98-107) H 12/17/16 06:20 Carbon Dioxide 26.8 mEq/L (21.0-31.0) 12/17/16 06:20 Anion Gap 6.2 (7.0-16.0) L 12/17/16 06:20 BUN 17 mg/dL (7-25) 12/17/16 06:20 Creatinine 0.8 mg/dL (0.6-1.2) 12/17/16 06:20 Est GFR ( Amer) TNP 12/17/16 06:20 Est GFR (Non-Af Amer) TNP 12/17/16 06:20 BUN/Creatinine Ratio 21.3 12/17/16 06:20 Glucose 112 mg/dL (70-105) H 12/17/16 06:20 POC Glucose 109 MG/DL (70 - 105) H 12/17/16 06:35 Calcium 9.0 mg/dL (8.6-10.3) 12/17/16 06:20 Total Bilirubin 0.3 mg/dL (0.3-1.0) 12/13/16 16:49 AST 15 U/L (13-39) 12/13/16 16:49 ALT 16 U/L (7-52) 12/13/16 16:49 Alkaline Phosphatase 83 U/L (34-104) 12/13/16 16:49 Troponin I 0.01 ng/mL (0.01-0.05) 12/13/16 16:49 Total Protein 6.8 gm/dL (6.0-8.3) 12/13/16 16:49 Albumin 4.0 gm/dL (3.7-5.3) 12/13/16 16:49 Globulin 2.8 gm/dL 12/13/16 16:49 Albumin/Globulin Ratio 1.4 (1.0-1.8) 12/13/16 16:49 Triglycerides 316 mg/dL (<150) H 12/13/16 16:49 Cholesterol 243 mg/dL (<200) H 12/13/16 16:49 LDL Cholesterol Direct 184 mg/dL (75-193) 12/13/16 16:49 HDL Cholesterol 45 mg/dL (23-92) 12/13/16 16:49 TSH 0.69 uIU/ml (0.34-5.60) 12/13/16 16:49 Valproic Acid < 10.0 ug/mL (50.0-100.0) L 12/13/16 16:49 RPR NONREACTIVE (NONREACTIVE) 12/13/16 16:49 - Physical Exam Vitals and I&O: Vital Signs Temp 97.1 F 12/17/16 08:00 Pulse 69 12/17/16 10:39 Resp 18 12/17/16 08:00 BP 174/82 12/17/16 10:39 Pulse Ox 98 12/17/16 08:00 Intake & Output 12/16/16 12/17/16 12/17/16 18:59 06:59 18:59 Intake Total 50 1010 Balance 50 1010 Weight (lbs) 158 lb 9.6 oz 158 lb Intake: Intake, IV Amount 1000 D5-0.45NS 1,000 ml @ 80 1000 mls/hr IV .[id number] [facility] Rx #:[id number] Oral 50 10 Other: # Voids 2 1 # Bowel Movements 1 Stool Characteristics Soft Brown Formed Brown Active Medications: Current Medications Acetaminophen (Tylenol) 650 mg PO Q4H PRN PRN Reason: Pain Or Fever above 101 Stop: 02/11/17 18:40 Acetaminophen/Hydrocodone Bitart ([place] 5mg/325mg) 1 tab PO Q4H PRN PRN Reason: Pain (Severe) Stop: 02/11/17 18:40 Al Hydrox/Mg Hydrox/Simethicone (Maalox) 30 ml PO Q6H PRN PRN Reason: Dyspepsia Stop: 02/11/17 18:40 Amlodipine Besylate (Norvasc) 5 mg PO DAILY [facility] Stop: 02/11/17 18:44 Last Admin: 12/17/16 10:36 Dose: Not Given Atorvastatin Calcium (Lipitor) 20 mg PO HS [facility] Stop: 02/11/17 20:59 Last Admin: 12/16/16 20:53 Dose: 20 mg Buspirone HCl (Buspar) 7.5 mg PO BID [facility] Stop: 02/12/17 08:59 Last Admin: 12/17/16 10:37 Dose: Not Given Cholecalciferol (Vitamin D3) 5,000 iu PO DAILY [facility] Stop: 02/12/17 12:59 Last Admin: 12/17/16 10:38 Dose: Not Given Clonidine HCl (Catapres) 0.1 mg PO Q6H PRN PRN Reason: SBP GREATER THAN 160 Stop: 02/11/17 18:40 Last Admin: 12/15/16 12:06 Dose: 0.1 mg Divalproex Sodium (Depakote Dr) 125 mg PO Q12HR [facility] PRN Reason: Protocol Stop: 02/11/17 20:59 Last Admin: 12/17/16 10:38 Dose: Not Given Duloxetine HCl (Cymbalta) 30 mg PO DAILY [facility] PRN Reason: Protocol Stop: 02/12/17 08:59 Last Admin: 12/17/16 10:38 Dose: Not Given Heparin Sodium (Porcine) (Heparin) 5,000 units SUBQ Q12HR [facility] Stop: 02/11/17 20:59 Last Admin: 12/17/16 10:38 Dose: Not Given Dextrose/Sodium Chloride (D5-0.45ns) 1,000 mls @ 80 mls/hr IV .[id number] [facility] Stop: 02/11/17 18:44 Last Admin: 12/17/16 04:04 Dose: 80 mls/hr Levofloxacin (Levaquin Pb) 500 mg in 100 mls @ 100 mls/hr IV Q24HR [facility] Stop: 02/11/17 20:59 Last Admin: 12/16/16 20:58 Dose: 100 mls/hr Lactated Ringer's (Lactated Ringer) 1,000 mls @ 0 mls/hr IV .Q0M [facility] PRN Reason: TKO Stop: 12/18/16 09:14 Lisinopril (Zestril) 20 mg PO BID [facility] Stop: 02/12/17 08:59 Last Admin: 12/17/16 10:39 Dose: Not Given Loperamide HCl (Imodium) 2 mg PO Q6H PRN PRN Reason: Diarrhea Stop: 02/11/17 18:34 Memantine (Namenda) 10 mg PO BID [facility] Stop: 02/12/17 08:59 Last Admin: 12/17/16 10:39 Dose: Not Given Meperidine HCl (Demerol) 12.5 mg IVP UD PRN PRN Reason: POST-OP PAIN Stop: 12/18/16 09:03 Miscellaneous (Vte Chemical Prophylaxis Screen/ Admission) 1 ea [facility] PRN PRN PRN Reason: PROTOCOL Stop: 02/13/17 17:26 Nitroglycerin (Nitrostat) 0.4 mg SL Q5MIN PRN PRN Reason: Chest Pain Stop: 02/11/17 18:34 Ondansetron HCl (Zofran) 4 mg IV Q8H PRN PRN Reason: Nausea / Vomiting Stop: 02/11/17 18:40 Ondansetron HCl (Zofran) 4 mg IV PRN PRN PRN Reason: Nausea / Vomiting Stop: 12/18/16 09:03 Pantoprazole Sodium (Protonix) 40 mg PO DAILY [facility] Stop: 02/12/17 08:59 Last Admin: 12/17/16 10:39 Dose: Not Given Sertraline HCl (Zoloft) 75 mg PO DAILY [facility] PRN Reason: Protocol Stop: 02/12/17 08:59 Last Admin: 12/17/16 10:39 Dose: Not Given General: alert HEENT: NC/AT, PERRLA Neck: Supple, No JVD, No thyromegaly Lungs: CTAB Cardiovascular: RRR, Normal S1, Normal S2 Abdomen: soft, non-tender, non-distended Extremities: other (RIGHT HAND INFECTION) Neurological: no change Internal Medicine Assmt/Plan - Assessment Assessment: RIGHT hand infection possible mass out of control htn dm-2 chf dementia gerd - Plan Plan: bedside i+d today CONTINUE EMPIRIC IVABX AM LABS CONTINUE CURRENT PLAN OF CARE
[2016-12-17] MEDS ORDERED: Triple Antibiotic 0.94 gm Pkt TP ONE (14:41)
--- NOTE | 2016-12-17 15:00 | Operative Report ---
DATE OF SURGERY: 12/17/2016 PREOPERATIVE DIAGNOSES: 1. Mass, right hand. 2. Diabetes mellitus. 3. Congestive heart failure. 4. Bipolar disorder. POSTOPERATIVE DIAGNOSES: 1. Mass, right hand. 2. Diabetes mellitus. 3. Congestive heart failure. 4. Bipolar disorder. OPERATION: Excision of mass, right hand. DESCRIPTION OF PROCEDURE: The right hand at the dorsum between the web of the thumb and second finger was prepped with Betadine. Then 1% lidocaine was used to infiltrate the area. Excision was done with scissors and the mass was sent for histology. The wound was treated with antibiotic ointment dressing. JOB# [id number]
[2016-12-17] MEDS: Atorvastatin Calcium 10 MG TAB PO SCH ×2 (20:30→21:08)
[2016-12-17] MEDS: Levofloxacin 500mg/100mL 500 MG/100 ML BAG IV SCH (20:31)
[2016-12-18 06:33] LABS: % BASOPHILS 0.5 % (0.0-2.0); % EOSINOPHILS 2.7 % (0.0-5.0); % LYMPHOCYTES 30.5 % (20.0-50.0); % MONOCYTES 7.2 % (2.0-10.0); % NEUTROPHILS 59.1 % (40.0-80.0); HEMATOCRIT 37.6 % (35.0-45.0); HEMOGLOBIN 12.9 gm/dL (11.7-16.1); MEAN CELL VOLUME 89.6 fl (81-100); MEAN CORPUSCULAR HEMOGLOBIN 30.6 pg (27.0-31.0); MEAN CORPUSCULAR HGB CONC 34.1 pg (28.0-36.0); MEAN PLATELET VOLUME 9.4 fl; PLATELET COUNT 194 Th/cmm (150-400); RED CELL DISTRIBUTION WIDTH 11.9 % (11.5-20.0); WHITE BLOOD COUNT 6.7 Th/cmm (4.8-10.8)
[2016-12-18 06:58] LABS: ANION GAP 6.3 (7.0-16.0); BUN - UREA NITROGEN 18 mg/dL (7-25); BUN/CREATININE RATIO 25.7; CALCIUM SERUM 8.7 mg/dL (8.6-10.3); CARBON DIOXIDE 26.5 mEq/L (21.0-31.0); CHLORIDE 105 mEq/L (98-107); CREATININE - SERUM 0.7 mg/dL (0.6-1.2); GLUCOSE 125 mg/dL (70-105); POTASSIUM SERUM 3.8 mEq/L (3.5-5.1); SODIUM SERUM 134 mEq/L (136-145)
[2016-12-18] MEDS: Pantoprazole 40 mg EC Tab PO SCH ×2 (08:36→09:54)
--- NOTE | 2016-12-18 10:29 | General Progress Note ---
Subjective - Review of Systems Events since last encounter: 12/18/16 may DC with local wound care - apply antibiotic daily until healed Objective - Results Result Diagrams: 12/18/16 05:45 12/18/16 05:45 Recent Labs: Laboratory Last Values WBC 6.7 Th/cmm (4.8-10.8) 12/18/16 05:45 RBC 4.20 Mil/cmm (3.80-5.20) 12/18/16 05:45 Hgb 12.9 gm/dL (11.7-16.1) 12/18/16 05:45 Hct 37.6 % (35.0-45.0) 12/18/16 05:45 MCV 89.6 fl (81-100) 12/18/16 05:45 MCH 30.6 pg (27.0-31.0) 12/18/16 05:45 MCHC Differential 34.1 pg (28.0-36.0) 12/18/16 05:45 RDW 11.9 % (11.5-20.0) 12/18/16 05:45 Plt Count 194 Th/cmm (150-400) 12/18/16 05:45 MPV 9.4 fl 12/18/16 05:45 Neutrophils % 59.1 % (40.0-80.0) 12/18/16 05:45 Lymphocytes % 30.5 % (20.0-50.0) 12/18/16 05:45 Monocytes % 7.2 % (2.0-10.0) 12/18/16 05:45 Eosinophils % 2.7 % (0.0-5.0) 12/18/16 05:45 Basophils % 0.5 % (0.0-2.0) 12/18/16 05:45 PT 10.3 SECONDS (9.5-11.5) 12/17/16 06:20 INR 0.99 (0.5-1.4) 12/17/16 06:20 PTT (Actin FS) 28.1 SECONDS (26.0-38.0) 12/17/16 06:20 Sodium 134 mEq/L (136-145) L 12/18/16 05:45 Potassium 3.8 mEq/L (3.5-5.1) 12/18/16 05:45 Chloride 105 mEq/L (98-107) 12/18/16 05:45 Carbon Dioxide 26.5 mEq/L (21.0-31.0) 12/18/16 05:45 Anion Gap 6.3 (7.0-16.0) L 12/18/16 05:45 BUN 18 mg/dL (7-25) 12/18/16 05:45 Creatinine 0.7 mg/dL (0.6-1.2) 12/18/16 05:45 Est GFR ( Amer) TNP 12/18/16 05:45 Est GFR (Non-Af Amer) TNP 12/18/16 05:45 BUN/Creatinine Ratio 25.7 12/18/16 05:45 Glucose 125 mg/dL (70-105) H 12/18/16 05:45 POC Glucose 109 MG/DL (70 - 105) H 12/17/16 06:35 Calcium 8.7 mg/dL (8.6-10.3) 12/18/16 05:45 Total Bilirubin 0.3 mg/dL (0.3-1.0) 12/13/16 16:49 AST 15 U/L (13-39) 12/13/16 16:49 ALT 16 U/L (7-52) 12/13/16 16:49 Alkaline Phosphatase 83 U/L (34-104) 12/13/16 16:49 Troponin I 0.01 ng/mL (0.01-0.05) 12/13/16 16:49 Total Protein 6.8 gm/dL (6.0-8.3) 12/13/16 16:49 Albumin 4.0 gm/dL (3.7-5.3) 12/13/16 16:49 Globulin 2.8 gm/dL 12/13/16 16:49 Albumin/Globulin Ratio 1.4 (1.0-1.8) 12/13/16 16:49 Triglycerides 316 mg/dL (<150) H 12/13/16 16:49 Cholesterol 243 mg/dL (<200) H 12/13/16 16:49 LDL Cholesterol Direct 184 mg/dL (75-193) 12/13/16 16:49 HDL Cholesterol 45 mg/dL (23-92) 12/13/16 16:49 TSH 0.69 uIU/ml (0.34-5.60) 12/13/16 16:49 Valproic Acid < 10.0 ug/mL (50.0-100.0) L 12/13/16 16:49 RPR NONREACTIVE (NONREACTIVE) 12/13/16 16:49 - Physical Exam Vitals and I&O: Vital Signs Temp 97.6 F 12/18/16 07:57 Pulse 58 12/18/16 08:36 Resp 20 12/18/16 07:57 BP 142/45 12/18/16 08:36 Pulse Ox 98 12/18/16 07:57 Intake & Output 12/17/16 12/18/16 12/18/16 18:59 06:59 18:59 Intake Total 1050 340 Balance 1050 340 Weight (lbs) 71.668 kg 71.668 kg Intake: Intake, IV Amount 1000 D5-0.45NS 1,000 ml @ 80 1000 mls/hr IV .[id number] [facility] Rx #:[id number] Oral 50 340 Other: # Voids 3 3 # Bowel Movements 1 1 Stool Characteristics Brown Soft Brown Active Medications: Current Medications Acetaminophen (Tylenol) 650 mg PO Q4H PRN PRN Reason: Pain Or Fever above 101 Stop: 02/11/17 18:40 Last Admin: 12/17/16 21:09 Dose: 650 mg Acetaminophen/Hydrocodone Bitart ([place] 5mg/325mg) 1 tab PO Q4H PRN PRN Reason: Pain (Severe) Stop: 02/11/17 18:40 Last Admin: 12/18/16 02:36 Dose: 1 tab Al Hydrox/Mg Hydrox/Simethicone (Maalox) 30 ml PO Q6H PRN PRN Reason: Dyspepsia Stop: 02/11/17 18:40 Amlodipine Besylate (Norvasc) 5 mg PO DAILY [facility] Stop: 02/11/17 18:44 Last Admin: 12/18/16 09:54 Dose: Not Given Atorvastatin Calcium (Lipitor) 20 mg PO HS [facility] Stop: 02/11/17 20:59 Last Admin: 12/17/16 21:08 Dose: Not Given Buspirone HCl (Buspar) 7.5 mg PO BID [facility] Stop: 02/12/17 08:59 Last Admin: 12/18/16 09:53 Dose: Not Given Cholecalciferol (Vitamin D3) 5,000 iu PO DAILY [facility] Stop: 02/12/17 12:59 Last Admin: 12/18/16 09:47 Dose: Not Given Divalproex Sodium (Depakote Dr) 125 mg PO Q12HR [facility] PRN Reason: Protocol Stop: 02/11/17 20:59 Last Admin: 12/18/16 09:54 Dose: Not Given Duloxetine HCl (Cymbalta) 30 mg PO DAILY [facility] PRN Reason: Protocol Stop: 02/12/17 08:59 Last Admin: 12/18/16 09:53 Dose: Not Given Heparin Sodium (Porcine) (Heparin) 5,000 units SUBQ Q12HR [facility] Stop: 02/11/17 20:59 Last Admin: 12/18/16 08:37 Dose: 5,000 units Dextrose/Sodium Chloride (D5-0.45ns) 1,000 mls @ 80 mls/hr IV .[id number] [facility] Stop: 02/11/17 18:44 Last Admin: 12/17/16 19:46 Dose: 80 mls/hr Levofloxacin (Levaquin Pb) 500 mg in 100 mls @ 100 mls/hr IV Q24HR [facility] Stop: 02/11/17 20:59 Last Admin: 12/17/16 20:31 Dose: 100 mls/hr Lisinopril (Zestril) 20 mg PO BID [facility] Stop: 02/12/17 08:59 Last Admin: 12/18/16 09:53 Dose: Not Given Loperamide HCl (Imodium) 2 mg PO Q6H PRN PRN Reason: Diarrhea Stop: 02/11/17 18:34 Memantine (Namenda) 10 mg PO BID [facility] Stop: 02/12/17 08:59 Last Admin: 12/18/16 08:36 Dose: 10 mg Miscellaneous (Vte Chemical Prophylaxis Screen/ Admission) 1 ea [facility] PRN PRN PRN Reason: PROTOCOL Stop: 02/13/17 17:26 Nitroglycerin (Nitrostat) 0.4 mg SL Q5MIN PRN PRN Reason: Chest Pain Stop: 02/11/17 18:34 Ondansetron HCl (Zofran) 4 mg IV Q8H PRN PRN Reason: Nausea / Vomiting Stop: 02/11/17 18:40 Pantoprazole Sodium (Protonix) 40 mg PO DAILY [facility] Stop: 02/12/17 08:59 Last Admin: 12/18/16 09:54 Dose: Not Given Sertraline HCl (Zoloft) 75 mg PO DAILY [facility] PRN Reason: Protocol Stop: 02/12/17 08:59 Last Admin: 12/18/16 09:54 Dose: Not Given Assessment/Plan - Problem List Patient Problems: All Active Problems RIGHT LATERAL HAND LESION (Acute)
--- NOTE | 2016-12-18 19:18 | Discharge Summary ---
DATE OF DISCHARGE: 12/18/2016 CHIEF COMPLAINT: Right hand infection. FINAL DIAGNOSES: Right hand mass with infection, status post resection; hypertension, congestive heart failure; diabetes; dementia; and gastroesophageal reflux disease. HISTORY: This is an 86-year-old female from nursing facility with worsening pain in the right hand and draining of lesion with pus. The patient admitted for further management. PHYSICAL EXAMINATION: VITAL SIGNS: Blood pressure ____, respirations 24, ____. GENERAL: Elderly female, appears her stated age. NECK: Supple. No mass. LUNGS: Equal breath sounds, few rhonchi. HEART: Regular rate and rhythm ____ systolic ejection murmur. ABDOMEN: Soft, nontender. EXTREMITIES: No clubbing, cyanosis, or edema. HOSPITAL COURSE: The patient was admitted to medical floor, continued on IV antibiotic. The patient referred to surgeon and had an I and D/resection. The patient tolerated the procedure well. The patient is cleared for discharge.. CONDITION ON DISCHARGE: Fair. DISCHARGE INSTRUCTIONS: The patient is to continue current medical regimen. The patient to follow closely with her primary care doctor. JOB# [id number]
--- NOTE | 2016-12-22 15:07 | Pathology Report ---
[id number] Collection Date: 12/17/2016 Surgeon: Dr. Ronaldo Jenkins Specimen Description: Excisional debridement, right hand mass. Gross Description: Received in formalin is an excision of dense hyperkeratotic skin measuring 1.5 x 1.3 x 0.4 cm. Blue ink is applied to the deep and side margins, and the specimen is sectioned and totally submitted in one cassette. Microscopic Description: The histologic sections show an excision of hyperkeratotic skin with areas of mild to moderate squamous atypia. There is also chronic inflammation and solar elastosis present consistent with sun damaged skin. Diagnosis: Inflamed actinic keratosis (right hand). Comment: There is no evidence for malignancy. [facility]# [id number]
--- NOTE | 2016-12-22 15:10 | Pathology Report ---
[facility]# [id number]
== END 2016-12-18 20:00 | disposition home or self-care (01) | DRG 570 ==
LOC: ER 16:24 → MSI 18:27
PROVIDERS: ADMIT Internal Medicine; ATTEND Internal Medicine
PROC: 0HBFXZZ Excision of Right Hand Skin, External Approach (ICD-10-PCS; principal; 2016-12-17)
DX: R22.31 Localized swelling, mass and lump, right upper limb (principal); J18.9 Pneumonia, unspecified organism; I11.0 Hypertensive heart disease with heart failure; I50.9 Heart failure, unspecified; F03.90 Unspecified dementia, unspecified severity, without behavioral disturbance, psychotic disturbance, mood disturbance, and anxiety; R00.1 Bradycardia, unspecified; F20.9 Schizophrenia, unspecified; B08.4 Enteroviral vesicular stomatitis with exanthem; K21.9 Gastro-esophageal reflux disease without esophagitis; E11.9 Type 2 diabetes mellitus without complications; F31.9 Bipolar disorder, unspecified; E78.5 Hyperlipidemia, unspecified; F29 Unspecified psychosis not due to a substance or known physiological condition
CPT/HCPCS: 36415-UA; 71010-TC; 80048-TC; 80053-TC; 80061-TC; 80164-TC; 82948-90; 84443-TC; 84484-TC; 85025-TC; 85610-TC; 85730-TC; 86592-TC; 87070-90; 87075-90; 87205-90; 88304-TC; 93005; J1644; J1956; J2001; Z7610